=== PATIENT | male | born 1960 | race Two or more races ===

== ENCOUNTER 2018-03-11 15:09 | Emergency (ER) | payer OTHER ==
[2018-03-11] VITALS (8 sets, daily range): BP systolic 91–207; BP diastolic 47–113
[~2018-03-11] VITALS: Ht 182.9 cm; Wt 108.9 kg
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
[2018-03-11] MEDS ORDERED: niCARdipine HCl 200 ML IV ONE (15:43)
[2018-03-11] MEDS ORDERED: levETIRAcetam 1,000mg/NS100ml 100 ML IVPB ONE ×2 (15:43→15:45)
[2018-03-11] MEDS ORDERED: Zemuron 50mg/5ml Inj IV ONE (15:45)
[2018-03-11] MEDS ORDERED: niCARdipine HCl 200 ML IV SCH (15:45)
[2018-03-11] MEDS ORDERED: Etomidate 40mg/20ml Inj IV ONE (15:45)
--- NOTE | 2018-03-11 15:46 | Diagnostic Imaging Report ---
Indications: Seizures and altered mental status Technique: Spiral acquisitions obtained through the brain. Angled axial and coronal 5 x 5 mm slices were reconstructed. Total dose length product 1369.05 mGycm. CTDI vol(s) 70.38 mGy. Dose reduction achieved using automated exposure control Comparison: None Findings: Centered in the region of the left lentiform nucleus is an intraparenchymal hemorrhage which measures 3.2 cm AP by 1.4 cm transverse by 2.2 cm craniocaudad. This demonstrates a small amount of surrounding edema. This results in mild mass effect, with attenuation of the frontal horn and body of the left lateral ventricle, 1 to 2 mm of midline shift. No other acute intracranial hemorrhage is demonstrated. There is enlargement of the ventricles and extra axial CSF spaces in general, as well as periventricular deep white matter low attenuation. Otherwise normal pardo-white differentiation. Intact calvarium. Visualized orbits and sinuses are unremarkable.. Impression: Positive for acute left basal ganglia intraparenchymal hemorrhage Cerebral volume loss and periventricular deep white matter chronic ischemic changes, both somewhat advanced for age Critical value findings discussed by phone with Dr. Ronquillo in the emergency room at the time of interpretation The CT scanner at [facility] is accredited by the [employer] and the scans are performed using protocols designed to limit radiation exposure to as low as reasonably achievable to attain images of sufficient resolution adequate for diagnostic evaluation.
--- NOTE | 2018-03-11 15:58 | Diagnostic Imaging Report ---
Indication: Shortness of breath Technique: One view of the chest Comparison: none Findings: Lungs and pleural spaces are clear. The heart size is normal. The aorta is tortuous and ectatic Impression: No acute process
[2018-03-11] MEDS ORDERED: Propofol 200mg/20ml IV ONE ×6 (16:11→17:30)
--- NOTE | 2018-03-11 16:29 | Diagnostic Imaging Report ---
Indication: Post intubation Technique: One view of the chest Comparison: One half hour earlier Findings: Endotracheal tube is not visualized. There is some atelectasis at the left lung base, slightly increased from previous exam. Lungs and pleural spaces otherwise clear. Heart size is normal. Impression: Endotracheal tube not visualized, presumably too high, above the thoracic inlet and above the plane of the image. This critical value was discussed by phone with Dr. Ronquillo at the time of interpretation
[2018-03-11] MEDS ORDERED: Midazolam/D5W 100ml 100 ML IVPB SCH (17:00)
[2018-03-11] MEDS ORDERED: Midazolam 2mg/2ml Inj IVP ONE (17:00)
--- NOTE | 2018-03-11 17:27 | Emergency Room Report ---
History of Present Illness General Chief Complaint: Seizure Source: Patient Present Illness Allergies: Coded Allergies: UNABLE TO ASSESS (Unverified , 03/11/18) Nursing Documentation-[facility] Past Medical History Deferred: Patient Unconscious Past Medical History: Deferred Physical Exam Vital Signs Date Time Temp Pulse Resp B/P (MAP) Pulse Ox O2 Delivery O2 Flow Rate FiO2 03/11/18 15:08 98.0 120 22 187/113 98 Room Air 98.1 03/11/18 15:45 100 Procedures Intubation Intubation : Consent: Emergent Intubation Method: orotracheal Tube Size (cm): 7.5 Medications: Etomidate, Rocuronium Breath Sounds after Intubation: equal Intubation Complications: no complications Post Intubation Xray: Yes Attempts: One Patient Tolerated: Well Complications: None Medical Decision Making Diagnostic Impression: Primary Impression: Seizure disorder Additional Impression: Intraparenchymal hemorrhage of brain Last Vital Signs Date Time Temp Pulse Resp B/P (MAP) Pulse Ox O2 Delivery O2 Flow Rate FiO2 03/11/18 16:47 20 153/75 03/11/18 16:45 117 100 Mechanical Ventilator 03/11/18 15:45 100 03/11/18 15:20 98.1 98.1 Disposition: ADMITTED INPATIENT Condition: Critical Referrals: [facility] (PCP) RUBEN MARCANO M.D. Mar 11, 2018 17:27
[2018-03-11 17:58] LABS: BASOPHILS % (AUTO) 1.3 % (0.0-2.0); EOSINOPHILS % (AUTO) 0.1 % (0.0-3.0); HEMOGLOBIN 14.4 G/DL (14.2-18.0); LYMPHOCYTES % (AUTO) 7.5 % (20.0-45.0); MEAN CORPUSCULAR VOLUME 97 FL (80-99); MONOCYTES % (AUTO) 7.5 % (1.0-10.0); NEUTROPHILS % (AUTO) 83.6 % (45.0-75.0); PLATELET COUNT 192 K/UL (150-450); RED BLOOD COUNT 4.31 M/UL (4.70-6.10); RED CELL DISTRIBUTION WIDTH 10.2 % (11.6-14.8); WHITE BLOOD COUNT 8.6 K/UL (4.8-10.8)
[2018-03-11 18:05] LABS: ANION GAP 19 mmol/L (5-15); BLOOD UREA NITROGEN 23 mg/dL (7-18); CALCIUM 10.4 MG/DL (8.5-10.1); CARBON DIOXIDE 23 MMOL/L (21-32); CHLORIDE 98 MMOL/L (98-107); CREATININE 1.8 MG/DL (0.55-1.30); POTASSIUM 3.7 MMOL/L (3.5-5.1); SODIUM 140 MMOL/L (136-145)
[2018-03-11 18:15] LABS: ALANINE AMINOTRANSFERASE 83 U/L (12-78); ALBUMIN 4.2 G/DL (3.4-5.0); ALBUMIN/GLOBULIN RATIO 0.8 (1.0-2.7); ALKALINE PHOSPHATASE 81 U/L (46-116); ASPARTATE AMINO TRANSFERASE 97 U/L (15-37); BILIRUBIN,TOTAL 1.1 MG/DL (0.2-1.0); CREATINE KINASE 504 U/L (26-308); TRIGLYCERIDES 156 MG/DL (30-150)
[2018-03-11 18:19] LABS: BILIRUBIN,DIRECT 0.2 MG/DL (0.0-0.3)
--- NOTE | 2018-03-12 08:32 | Diagnostic Imaging Report ---
Indication: Status post advancement of endotracheal tube Technique: One view of the chest Comparison: 20 minutes earlier Findings: Interval advancement of endotracheal tube, tip now projected just below the thoracic inlet and approximately 8 cm above the sania. Suboptimal inspiration. Atelectasis of the left lung base persists, unchanged. Lungs and pleural spaces otherwise clear. Impression: Improved position of endotracheal tube Other stable findings as described
--- NOTE | 2018-03-12 16:56 | Cardiology Report ---
APPROVED REPORT EKG Measurement Heart [id number] [id number] [id number] Sinus tachycardia Possible Left atrial enlargement Septal infarct, age undetermined Abnormal ECG
== END 2018-03-11 18:49 | disposition short-term general hospital (02) ==
LOC: EDBD 15:09 → EMR 15:58 → EDBEDREQSVC 16:53 → EDBEDREQ 16:53 → EMR 18:49
DX: S06.2X9A Diffuse traumatic brain injury with loss of consciousness of unspecified duration, initial encounter (principal); G40.909 Epilepsy, unspecified, not intractable, without status epilepticus; V49.9XXA Car occupant (driver) (passenger) injured in unspecified traffic accident, initial encounter; Y92.9 Unspecified place or not applicable
CPT/HCPCS: 31500; 36415; 70450; 71045; 80053; 82248; 82550; 84478; 84484; 85025; 93005; 94002; 94664; 96374; 96375; 99285; G0480; J1953; J2250; J2704; 80329